=== PATIENT | female | born 1990 | race African-American/Black ===

== ENCOUNTER 2023-03-14 17:56 | Emergency (ER) | payer OTHER ==
[~2023-03-14] VITALS: Ht 167.6 cm; Wt 91.0 kg
[2023-03-14 18:58] LABS: PH,URINE DRUG SCREEN 5.5 (5.0-8.0)
[2023-03-14 19:03] LABS: ALCOHOL, URINE DRUG SCREEN NEGATIVE (NEGATIVE); AMPHET/METH SCREEN,URINE NEGATIVE (NEGATIVE); BARBITURATE SCREEN, URINE NEGATIVE (NEGATIVE); BENZODIAZEPINES SCREEN,URINE NEGATIVE (NEGATIVE); CANNABINOID SCREEN,URINE NEGATIVE (NEGATIVE); COCAINE SCREEN,URINE NEGATIVE (NEGATIVE); METHADONE SCREEN, URINE NEGATIVE (NEGATIVE); OPIATE SCREEN,URINE NEGATIVE (NEGATIVE); PHENCYCLIDINE SCREEN,URINE NEGATIVE (NEGATIVE)
[2023-03-14] MEDS ORDERED: LORazepam 2 MG/ML VIAL ONE (20:24)
[2023-03-14] MEDS ORDERED: DiphenhydrAMINE HCL 50 MG/ML VIAL ONE (20:24)
[2023-03-14] MEDS ORDERED: HALOPERIDOL LACTATE 5 MG/ML VIAL ONE (20:25)
[2023-03-14] MEDS ORDERED: DiphenhydrAMINE HCL 50 MG/ML VIAL IM ONE (21:15)
[2023-03-14] MEDS ORDERED: HALOPERIDOL LACTATE 5 MG/ML VIAL IM ONE (21:15)
[2023-03-14] MEDS ORDERED: LORazepam 2 MG/ML VIAL IM ONE (21:15)
[2023-03-15 01:07] LABS: COVID AG,FIA SOURCE NASAL SWAB
[2023-03-15 01:36] LABS: SARS-COV2 (COVID) ANTIGEN,FIA Negative (Negative)
[2023-03-15 12:10] VITALS: BP 144/86; PULSE 123; RESP 16; TEMP 98.9
== END 2023-03-15 13:54 ==
LOC: EMS 18:10
DX: F25.9 Schizoaffective disorder, unspecified (principal); Z20.822 Contact with and (suspected) exposure to COVID-19
CPT/HCPCS: 99285; 87426; 96372; 80307; J1200; J1630; J2060